=== PATIENT | female | born 1995 | race Caucasian/White ===

== ENCOUNTER 2021-02-01 04:52 | Emergency (ER) | payer OTHER ==
[~2021-02-01] VITALS: Ht 152.4 cm; Wt 97.1 kg
[2021-02-01 04:52] VITALS: BP 130/68
--- NOTE | 2021-02-01 04:52 | NUR ---
TO BED 8 VIA [facility] WITH C/O ASTHMA ATTACK. PT STATES HAS HAD 2-3 ASTHMA ATTACKS TODAY. (+) ACCESSORY MUSCLE USE. INSPIRATORY AND EXPIRATORY WHEEZES NOTED THROUGHOUT LUNG FLOYD. SKIN IS WARM AND DRY PMH: ASTHMA, GRANULOMA LUNG, COLON POLYPS, ENDOMETRIOSIS, HIATAL HERNIA, SURGICAL HX : CHOLECYSTECTOMY, PARTIAL HYSTERECTOMY ALLERGIC : MORPHINE
--- NOTE | 2021-02-01 04:55 | NUR ---
DR. COKER AT BEDSIDE FOR EXAM.
[2021-02-01] MEDS ORDERED: methylPREDNISolone SS 125 MG/2 ML VIAL IVP ONE (05:00)
[2021-02-01] MEDS ORDERED: ALBUTEROL SULFATE/IPRATROPIU 3 ML SOL IH ONE (05:00)
[2021-02-01] MEDS ORDERED: NACL 0.9% 1,000 ML IV ONE (05:00)
--- NOTE | 2021-02-01 05:10 | NUR ---
Yelitza COMPLETED. PT STATES "I'M BREATHING BETTER"
--- NOTE | 2021-02-01 06:30 | NUR ---
AWAKE, FEELING BETTER LABS DRAWN
[2021-02-01] MEDS ORDERED: PRED20TA5 PO (07:00)
[2021-02-01] MEDS ORDERED: ALBU0.0912 INH (07:00)
[2021-02-01 07:08] LABS: BASOPHILS # (AUTO) 0.1 K/uL (0.00-0.22); EOSINOPHILS # (AUTO) 0.7 K/uL (0-0.4); EOSINOPHILS % (AUTO) 5.5 % (0.0-4.0); HEMOGLOBIN 11.7 g/dL (12.0-16.0); LYMPHOCYTES # (AUTO) 2.3 K/uL (2.5-16.5); LYMPHOCYTES % (AUTO) 19.1 % (20.5-51.1); MEAN CORPUSCULAR HEMOGLOBIN 25 pg (27-31); MEAN CORPUSCULAR HGB CONC 33 g/dL (33-37); MEAN CORPUSCULAR VOLUME 76.9 fL (80-94); MONOCYTES # (AUTO) 0.7 K/uL (0.8-1.0); MONOCYTES % (AUTO) 6.1 % (1.7-9.3); NEUTROPHILS # (AUTO) 8.3 K/uL (1.8-7.7); NEUTROPHILS % (AUTO) 68.3 % (42.2-75.2); PLATELET COUNT (AUTO) 306 K/uL (140-450); RED BLOOD CELL COUNT(AUTO) 4.68 MIL/uL (4.20-5.40); RED CELL DISTRIBUTION WIDTH 16.9 % (11.6-13.7); WHITE BLOOD COUNT (AUTO) 12.1 K/uL (4.8-10.8)
[2021-02-01 07:25] LABS: ALBUMIN 3.7 g/dL (3.4-5.0); ANION GAP 14.3 (8-16); CARBON DIOXIDE 25.1 mmol/L (21-32); CREATININE 0.8 mg/dL (0.6-1.3); POTASSIUM 3.4 mmol/L (3.5-5.1); TOTAL BILIRUBIN 0.3 mg/dL (0.0-1.0)
[2021-02-01 08:05] VITALS: BP 119/68
--- NOTE | 2021-02-01 08:05 | NUR ---
Patient discharged with v/s stable. Written and verbal after care instructions given and explained. Patient alert, oriented and verbalized understanding of instructions. Ambulatory with steady gait. All questions addressed prior to discharge. ID band removed. Patient advised to follow up with PMD. Rx of Prednisone, Albuterol inhaler given. Patient educated on indication of medication including possible reaction and side effects. Opportunity to ask questions provided and answered.
== END 2021-02-01 08:05 | disposition home or self-care (01) ==
LOC: EDBD 04:52 → MED 04:52
DX: J45.901 Unspecified asthma with (acute) exacerbation (principal); Z88.5 Allergy status to narcotic agent; Z79.899 Other long term (current) drug therapy
CPT/HCPCS: 36415; 71045; 80053; 84443; 84702; 85025; 85379; 93005; 94640; 96361; 96374; 99285; J2930; J7030